=== PATIENT | male | born 1955 | race Caucasian/White ===

== ENCOUNTER → 2018-01-12 13:28 | Outpatient (POV) | payer OTHER, MEDICARE, SELFPAY | DX: Z00.00 Encounter for general adult medical examination without abnormal findings (principal) ==

== ENCOUNTER 2020-08-21 16:37 | Emergency (ER) | payer MEDICARE, SELFPAY ==
[2020-08-21 16:38] VITALS: BP 132/83; PULSE 84; RESP 18; TEMP 36.7; O2SAT 97; BMI 22.5
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
--- NOTE | 2020-08-21 17:07 | ECG_ITS ---
APPROVED REPORT Exam: Resting ECG HR:63 bpm ECG Measurements Heart Rate 63 AXES FL 108 P -12 QRSd 66 QRS 61 QT 392 T 56 QTc 401 Conclusion Sinus rhythm with short FL Septal infarct, age undetermined Abnormal ECG Electronically signed by : Noé Silva, 08/23/2020 09:07:28
--- NOTE | 2020-08-21 17:08 | HMH.EDANX ---
ED Disposition Clinical Impression: Acute anxiety Disposition: Home, Self-Care Condition on Discharge: Good Instructions: DI for Anxiety -- Adult Referrals: José Luis Robertson [Primary Care Provider] - 3 days - Critical Care Critical Care Time: No Attestation: On 08/21/20, the high probability of a clinically significant, sudden or life threatening deterioration of the following system(s) required my full and direct attention, intervention and personal management. The time I documented below is in addition to time spent performing reported procedures but includes the following listed in this critical care notation. Medical Decision Making - Medical Records Medical records reviewed: Yes: I reviewed the patient's medical records. - Pierre Inquiry Pt receiving controlled substance: Yes Pierre was queried for this patient: No Risks and benefits of using a controlled substance: were discussed with pt by me Vital Signs: 08/21/20 16:38 Temperature 98.0 F Temperature Source Oral Pulse Rate [Left Radial] 84 Respiratory Rate 18 Blood Pressure [Left Arm] 132/83 Blood Pressure Mean [Left Arm] 99 Blood Pressure Source [Left Arm] Automatic Cuff Blood Pressure Position [Left Arm] Sitting 02 Sat by Pulse Oximetry 97 Oxygen Delivery Method Room Air - Lab Data Lab results reviewed: Yes: I reviewed the patient's lab results. Lab Results 08/21/20 17:15: WBC 6.8, RBC 5.09, Hgb 15.7, Hct 46.4, MCV 91.1, MCH 30.9, MCHC 33.9, RDW 13.1, Plt Count 171, MPV 7.7, Neut % (Auto) 65.3, Lymph % (Auto) 27.3, [place] % (Auto) 6.0, Eos % (Auto) 0.9, Baso % (Auto) 0.5, Neut # (Auto) 4.4, Lymph # (Auto) 1.8, [place] # (Auto) 0.4, Eos # (Auto) 0.1, Baso # (Auto) 0.0 08/21/20 17:15: Sodium 140, Potassium 3.9, Chloride 102, Carbon Dioxide 30, Anion Gap 11.9, BUN 9, Creatinine 0.60 L, Estimated Creat Clear 71, Estimated GFR 136, Est GFR ( Amer) 164, Glucose 128 H, Calcium 9.2, Troponin I < 0.01 Result diagrams: 08/21/20 17:15 08/21/20 17:15 Orders (Tests/Meds): ED MEDICATIONS Discontinued Medications Generic Name Dose Route Start Last Admin Trade Name Darrick PRN Reason Stop Dose Admin Diazepam 5 mg 08/21/20 17:08 08/21/20 17:29 Diazepam 5mg Tablet PO 08/21/20 17:09 5 mg ONCE ONE Administration ORDERS Category Date Time Status ECG Request by /Mingo Stat Y 08/21/20 17:07 Ordered - Radiology Data #1 Image(s): Chest No acute process, chronic small airway disease present Medical Decision Narrative: Patient with reassuring vital signs, EKG with no signs of acute ischemia and negative troponin. Low suspicion for ACS. Chest x-ray with no signs of florid pulmonary edema, pneumonia, pneumothorax, widened mediastinum. Patient has had anxiety attacks before with similar onset. He is feeling much better with Valium here. Suspect his annexes and recommended following up with PCP for further evaluation, management and discussion of medication control if needed. Discharged home. Anxiety HPI - General Chief Complaint: Anxiety Stated Complaint: possible anxiety Time Seen by Provider: 08/21/20 17:08 Mode of Arrival: Ambulatory Limitations: No Limitations Description of Symptoms (Recalled from ER Triage Doc. by RN): Pt reports he believes he is having an anxiety attack. 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 Pt reports he took 1 tablet of Xanax 0.5 mg. Pt reports symptoms have improved some but not fully. Pt reports hx of anxiety. Pt denies SOA, Chest pain, pain anywhere, or dizziness. - History of Present Illness HPI narrative: This is a 65-year-old male with a past medical history significant for hypertension, hyperlipidemia, COPD, peripheral vascular disease who presents to the emergency department for evaluation of episode of anxiety at home. He previously struggled with significant anxiety attacks that sent him to the emergency ro
[2020-08-21 17:31] VITALS: BP 121/76; PULSE 72; RESP 18; O2SAT 97
[2020-08-21 17:31] LABS: Chloride 102 mmol/L (98-107); Potassium 3.9 mmoL/L (3.5-5.1); Sodium 140 mmol/L (136-145)
[2020-08-21 17:34] LABS: Anion Gap 11.9 mEq/L (5-15); Blood Urea Nitrogen 9 mg/dl (9-20); Calcium 9.2 mg/dl (8.4-10.2); Carbon Dioxide 30 mmol/L (22.0-30.0); Creatinine Clearance Estimated 71 mL/min (50-200); Estimated Glomerular Filt Rate 136 ml/min (>60); GFR (African American) 164 ML/MIN (>60); Glucose 128 mg/dl (74-100)
[2020-08-21 17:36] LABS: Basophils % 0.5 % (0.1-2.0); Eosinophils # 0.1 K/mm3 (0.0-0.4); Eosinophils % 0.9 % (0.1-12.0); Hematocrit 46.4 % (42.0-52.0); Hemoglobin 15.7 g/dL (14.1-18.0); Lymphocytes # 1.8 K/mm3 (0.7-4.5); Lymphocytes % 27.3 % (10-50); Mean Corpuscular HGB Conc 33.9 g/dL (31.8-35.4); Mean Corpuscular Hemoglobin 30.9 pg (27.0-31.2); Mean Corpuscular Volume 91.1 fl (80-94); Mean Platelet Volume 7.7 fl (7.4-10.4); Monocytes # 0.4 K/mm3 (0.1-1.0); Neutrophils # 4.4 K/mm3 (1.8-7.8); Neutrophils % 65.3 % (37.0-80.0); Platelet Count 171 K/mm3 (142-424); Red Blood Count 5.09 M/mm3 (4.60-6.20); Red Cell Distribution Width 13.1 % (11.5-17.5); White Blood Count 6.8 K/mm3 (4.8-10.8)
[2020-08-21 17:52] LABS: Troponin I < 0.01 ng/ml (0.00-0.034)
[2020-08-21 18:00] VITALS: BP 119/75; PULSE 61; PULSE 67; RESP 18; TEMP 36.6; O2SAT 97
== END 2020-08-21 18:09 | disposition home or self-care (01) ==
PROVIDERS: Emergency Provider Emergency Medicine; PCP Family Medicine
DX: F41.9 Anxiety disorder, unspecified (principal); I10 Essential (primary) hypertension; E78.5 Hyperlipidemia, unspecified; J44.9 Chronic obstructive pulmonary disease, unspecified; I73.9 Peripheral vascular disease, unspecified; Z79.899 Other long term (current) drug therapy
CPT/HCPCS: 71045; 80048; 84484; 85025; 93005; 99282

== ENCOUNTER 2020-10-21 17:54 | Emergency (ER) | payer MEDICARE, SELFPAY ==
[2020-10-21 18:17] VITALS: BP 186/103; PULSE 96; RESP 18; TEMP 36.9; O2SAT 97; BMI 22.9
--- NOTE | 2020-10-21 18:45 | XR_ITS ---
PROCEDURE INFORMATION: Exam: XR Lumbosacral Spine Exam date and time: 10/21/2020 6:45 PM Age: 65 years old Clinical indication: Low back pain; Prior surgery; Additional info: Lbp TECHNIQUE: Imaging protocol: XR of the lumbosacral spine. Views: 2 or 3 views. COMPARISON: No relevant prior studies available. FINDINGS: Bones/joints: At L4-L5 there is disc height narrowing, endplate sclerosis and anterior and posterior osteophyte formation. No acute fracture. Normal alignment. Soft tissues: Unremarkable. IMPRESSION: No acute findings.
--- NOTE | 2020-10-21 19:20 | HMH.EDGENADL ---
ED Disposition Clinical Impression: Lumbar back pain Disposition: Home, Self-Care Condition on Discharge: Good Instructions: DI for Low Back Pain, DI for Chronic Pain -- Adult Prescriptions: methylPREDNISolone [Medrol 4mg tab] 4 mg PO DIRECTED #21 tab Prescription Printed Referrals: José Luis Robertson [Primary Care Provider] - - Critical Care Critical Care Time: No Attestation: On 10/21/20, the high probability of a clinically significant, sudden or life threatening deterioration of the following system(s) required my full and direct attention, intervention and personal management. The time I documented below is in addition to time spent performing reported procedures but includes the following listed in this critical care notation. Medical Decision Making - Medical Records Medical records reviewed: Yes: I reviewed the patient's medical records. - Pierre Inquiry Pt receiving controlled substance: No Vital Signs: 10/21/20 18:17 Temperature 98.4 F Temperature Source Oral Pulse Rate [Left Radial] 96 H Respiratory Rate 18 Blood Pressure [Right Arm] 186/103 H Blood Pressure Mean [Right Arm] 130 Blood Pressure Source [Right Arm] Automatic Cuff Blood Pressure Position [Right Arm] Sitting 02 Sat by Pulse Oximetry 97 Oxygen Delivery Method Room Air Orders (Tests/Meds): ED MEDICATIONS Generic Name Dose Route Start Last Admin Trade Name Freq PRN Reason Stop Dose Admin Methocarbamol 500 mg 10/21/20 21:00 10/21/20 18:48 Methocarbamol 500mg Tablet PO 11/20/20 20:59 500 mg BID HANNAH Administration Discontinued Medications Generic Name Dose Route Start Last Admin Trade Name Freq PRN Reason Stop Dose Admin Ketorolac Tromethamine 15 mg 10/21/20 18:38 10/21/20 18:48 Ketorolac 30mg/Ml Vial IM 10/21/20 18:39 15 mg ONCE ONE Administration Methylprednisolone Acetate 40 mg 10/21/20 18:43 10/21/20 18:48 Methylprednisolone Acetate 40mg/Ml Vial IM 10/21/20 18:44 40 mg ONCE ONE Administration ORDERS Category Date Time Status XR lumbar spine 2-3V Stat Exams 10/21/20 18:45 Taken Medical Decision Narrative: To the ED today for further evaluation of low back pain. Differential diagnosis includes cauda equina syndrome, lumbar radiculopathy, sciatica. Patient is well-appearing on examination no acute distress, no SIRS symptoms of infection, back pain is chronic, and acute on chronic today. Patient does not have any evidence of urinary retention, no fecal incontinence, no saddle anesthesia, no numbness or weakness of the lower extremities and no clonus on exam, low concern for acute cause cauda equina spinal cord compression at this time. Patient received 15 mg of IM oral, 40 mg of IM methylprednisolone, 500 mg of oral methocarbamol and is reported a mild symptomatic improvement at this time. I have thoroughly discussed the pros and cons of initiating steroid therapy in this patient who is at risk for GI bleeding, advised him to take [id number] omeprazole, and to stop taking his steroid and report to the ED should he have any symptoms of upper or lower GI bleeding, and I discussed the symptoms of coffee-ground emesis and melena. Patient has moderate cardiac risk as well, and I have not advised NSAID therapy, however states that he does take NSAIDs occasionally. Patient to follow-up with primary care, I have advised him to do this, and he will schedule. Patient given other return precautions to return to the ED with any new or worsening symptoms we discussed symptoms of spinal cord compression as well. Patient well-appearing at the time of discharge. General Adult HPI - General Chief complaint: Back Pain/Injury Stated complaint: back pain Time Seen by Provider: 10/21/20 18:20 Mode of Arrival: Ambulatory Limitations: No Limitations Description of Symptoms (Recalled from ER Triage Doc. by RN): c/o lower back pain. States that he has a hx of back surgeries and pain. -
[2020-10-21 19:26] VITALS: BP 140/75; PULSE 81; RESP 17; TEMP 36.8; O2SAT 98
== END 2020-10-21 19:29 | disposition home or self-care (01) ==
PROVIDERS: Emergency Provider Student in an Organized Health Care Education/Training Program; PCP Family Medicine
DX: M54.5 Low back pain (principal); E78.5 Hyperlipidemia, unspecified; I10 Essential (primary) hypertension; J44.9 Chronic obstructive pulmonary disease, unspecified
CPT/HCPCS: 72100; 96372; 99281; J1030

== ENCOUNTER 2021-03-10 15:52 | Emergency (ER) | payer MEDICARE, SELFPAY ==
[2021-03-10 15:53] VITALS: BP 142/88; PULSE 106; RESP 20; TEMP 36.6; O2SAT 98; BMI 22.5
--- NOTE | 2021-03-10 16:24 | CT_ITS ---
PROCEDURE INFORMATION: Exam: CT Abdomen And Pelvis With Contrast Exam date and time: 03/10/2021 4:24 PM Age: 65 years old Clinical indication: Abdominal pain; Flank; Left; Additional info: Left flank pain TECHNIQUE: Imaging protocol: Computed tomography of the abdomen and pelvis with contrast. Radiation optimization: All CT scans at this facility use at least one of these dose optimization techniques: automated exposure control; mA and/or kV adjustment per patient size (includes targeted exams where dose is matched to clinical indication); or iterative reconstruction. Contrast material: ISOVUE; Contrast volume: 75 ml; Contrast route: IV; COMPARISON: CR XR LUMBAR SPINE 2-3V 10/21/2020 6:48 PM FINDINGS: Lungs: Lungs appear hyperinflated. Calcified right lower lobe pulmonary granuloma. Mild interstitial scarring or subsegmental atelectasis in the left lingula. No focal consolidation, as visualized. Liver: The liver is normal. Gallbladder and bile ducts: Cholecystectomy clips. Slightly prominent common duct up to 1.1 cm, and minimal ectasia of the left hepatic biliary tree, probably benign reservoir effect post cholecystectomy. No calcified stones. Pancreas: Slight fatty atrophic changes of the pancreas. No mass or ductal dilatation. Spleen: The spleen is normal. Adrenal glands: 2.6 cm right adrenal mass, which has slightly heterogeneous internal density with some thin septations suggested, this has indeterminate enhanced HU density measurements ranging from 17-65 HU. Series 3, image 21. Left adrenal is normal. Kidneys and ureters: Mild left hydronephrosis and hydroureter. There is a possible low-density 4 mm stone at the left ureterovesical junction series 3, image 97 and coronal series 1001, image 44, with HU density of approximate 123. This is not clearly visible on the hybrid tester topogram. There is left perinephric and periureteral soft tissue edema, which could be due to obstruction versus superimposed UTI. No hydronephrosis or hydroureter on the right. There are tiny bilateral nonobstructing renal calculi. 11 x 7 mm simple right renal cortical cystic lesion with enhanced HU density of 12 series 3, image 35. Subcentimeter, tiny hypoattenuating lesions in the kidneys are probably tiny cysts, too small to accurately characterize. Stomach and bowel: There is no evidence of intestinal perforation or obstruction. The stomach is normal. Appendix: A normal appendix is identified. Intraperitoneal space: There is no significant free intraperitoneal fluid; trace fluid in the left pericolic gutter appears to be emanating from the edematous left kidney. There is no free intraperitoneal air. Vasculature: Extensive atherosclerotic disease. There is no aortic aneurysm. There is moderate infrarenal abdominal aortic stenosis with soft plaque or intraluminal thrombus, see series 3, images 49-50 and coronal series 1001, images 38-39. There is occlusion of the left common iliac artery coronal series 1001, images 38-39. There is reconstitution of the left internal and external iliac arteries via collaterals. Additional scattered atherosclerotic plaques throughout the abdomen and pelvis. Lymph nodes: No significantly enlarged lymph nodes by short axis criteria. Urinary bladder: The urinary bladder is nearly empty and not well evaluated, which likely accounts for thickened appearance. Tiny left UVJ stone suggested, see the ureteral discussion above. Reproductive: Nonspecific prostate enlargement approximately 5.5 x 4 x 3.5 cm, with heterogeneous prostate enhancement. Seminal vesicles are unremarkable. Bones/joints: Some scattered tiny sclerotic bone lesions
[2021-03-10 16:38] LABS: Microscopic, Urine URINE MICROSCOPIC (MICROSCOPIC)
[2021-03-10 16:46] LABS: Appearance,Urine SL CLOUDY (Clear); Bilirubin,Urine Negative (Negative); Blood, Urine 3+ (Negative); Color,Urine BROWN (Yellow); Glucose,Urine (UA) Negative (Negative); Ketones,Urine Negative (Negative); Leukocyte Esterase,Urine TRACE (Negative); Nitrate,Urine Negative (Negative); Protein,Urine 1+ (Negative); Specific Gravity, Urine 1.015 (1.005-1.030); Urobilinogen,Urine 0.2 EU/dl (0.2)
[2021-03-10 16:50] VITALS: BP 157/72; PULSE 81; RESP 18; O2SAT 97
[2021-03-10 17:00] VITALS: BP 142/66; PULSE 75; RESP 18; O2SAT 97
--- NOTE | 2021-03-10 17:01 | HMH.EDGENADL ---
ED Disposition Clinical Impression: Bilateral nephrolithiasis, Lesion of adrenal gland UTI (urinary tract infection) Qualifiers: Urinary tract infection type: acute cystitis Hematuria presence: with hematuria Qualified Code(s): N30.01 - Acute cystitis with hematuria Disposition: Home, Self-Care Condition on Discharge: Good Additional Instructions: Follow-up with Dr. Escoto this for urology followup. Take antibiotics, pain medication, flomax as directed. Drink plenty of fluids and water. Strain your urine for signs of passing a kidney stone. It is also important follow-up with your primary care physician for outpatient CT scan of your adrenal gland. Return to ED with new, worsening, concerning symptoms. Prescriptions: Tamsulosin HCl [Flomax 0.4mg capsule] 0.4 mg PO HS #30 cap Transmission Status: Received by [facility] Cefdinir [Omnicef 300mg Capsule] 300 mg PO BID #20 cap Transmission Status: Received by [facility] Oxycodone HCl [Oxycodone 5mg tab (IR)] 5 mg PO Q8 PRN 3 Days #8 tab PRN Reason: Severe Pain Prescription Printed Referrals: José Luis Robertson [Primary Care Provider] - Angel Luis Escoto MD [Staff Physician] - - Critical Care Critical Care Time: No Attestation: On 03/10/21, the high probability of a clinically significant, sudden or life threatening deterioration of the following system(s) required my full and direct attention, intervention and personal management. The time I documented below is in addition to time spent performing reported procedures but includes the following listed in this critical care notation. Medical Decision Making - Medical Records Medical records reviewed: Yes: I reviewed the patient's medical records. - Pierre Inquiry Pt receiving controlled substance: No Vital Signs: 03/10/21 15:53 03/10/21 16:50 03/10/21 17:00 Temperature 98 F Temperature Source Oral Pulse Rate 81 75 Pulse Rate [Radial] 106 H Respiratory Rate 20 18 18 Blood Pressure 157/72 H 142/66 H Blood Pressure [Right Arm] 142/88 H Blood Pressure Mean 100 91 Blood Pressure Mean [Right Arm] 106 Blood Pressure Position [Right Arm] Sitting 02 Sat by Pulse Oximetry 98 97 97 Oxygen Delivery Method Room Air 03/10/21 20:04 Temperature 98.2 F Temperature Source Oral Pulse Rate 80 Pulse Rate [Radial] Respiratory Rate 18 Blood Pressure 140/78 Blood Pressure [Right Arm] Blood Pressure Mean Blood Pressure Mean [Right Arm] Blood Pressure Position [Right Arm] 02 Sat by Pulse Oximetry Oxygen Delivery Method Room Air - Lab Data Lab Results 03/10/21 16:00: Urine Color Brown, Urine Appearance Sl cloudy, Urine pH 7.0, Ur Specific [place] 1.015, Urine Protein 1+, Urine Glucose (UA) Negative, Urine Ketones Negative, Urine Blood 3+, Urine Nitrate Negative, Urine Bilirubin Negative, Urine Urobilinogen 0.2, Ur Leukocyte Esterase Trace, Urine RBC Tntc, Urine WBC 3-5, Ur Squamous Epith Cells None, Urine Bacteria 1+ 03/10/21 16:46: WBC 10.1, RBC 4.44 L, Hgb 14.2, Hct 41.0 L, MCV 92.2, MCH 31.9 H, MCHC 34.6, RDW 13.5, Plt Count 201, MPV 7.5, Neut % (Auto) 67.4, Lymph % (Auto) 24.5, [place] % (Auto) 7.2, Eos % (Auto) 0.3, Baso % (Auto) 0.6, Neut # (Auto) 6.8, Lymph # (Auto) 2.5, [place] # (Auto) 0.7, Eos # (Auto) 0.0, Baso # (Auto) 0.1 03/10/21 16:46: Sodium 143, Potassium 3.3 L, Chloride 102, Carbon Dioxide 35 H, Anion Gap 9.3, BUN 11, Creatinine 0.70, Estimated Creat Clear 71, Estimated GFR 114, Est GFR ( Amer) 137, Glucose 102 H, Calcium 9.2, Total Bilirubin 0.3, AST 31, ALT 28, Alkaline Phosphatase 69, Total Protein 6.9, Albumin 4.2, Globulin 2.7, Albumin/Globulin Ratio 1.6 03/10/21 16:46: Lipase 16 L 03/10/21 16:46: Lactate 1.3 Result diagrams: 03/10/21 16:46 03/10/21 16:46 Orders (Tests/Meds): ED MEDICATIONS Discontinued Medications Generic Name Dose Route Start Last Admin Trade Name Freq PRN Reason Stop Dose Admin Cefdinir 300 mg 03/10/21 09
[2021-03-10 17:06] LABS: Bacteria,Urine 1+ /lpf; RBC,Urine TNTC #/hpf (0-3)
[2021-03-10 17:12] LABS: Basophils # 0.1 K/mm3 (0-0.2); Basophils % 0.6 % (0.1-2.0); Chloride 102 mmol/L (98-107); Eosinophils % 0.3 % (0.1-12.0); Hemoglobin 14.2 g/dL (14.1-18.0); Lymphocytes # 2.5 K/mm3 (0.7-4.5); Lymphocytes % 24.5 % (10-50); Mean Corpuscular HGB Conc 34.6 g/dL (31.8-35.4); Mean Corpuscular Hemoglobin 31.9 pg (27.0-31.2); Mean Corpuscular Volume 92.2 fl (80-94); Mean Platelet Volume 7.5 fl (7.4-10.4); Monocytes # 0.7 K/mm3 (0.1-1.0); Monocytes % 7.2 % (1.7-9.3); Neutrophils # 6.8 K/mm3 (1.8-7.8); Neutrophils % 67.4 % (37.0-80.0); Platelet Count 201 K/mm3 (142-424); Potassium 3.3 mmoL/L (3.5-5.1); Red Blood Count 4.44 M/mm3 (4.60-6.20); Red Cell Distribution Width 13.5 % (11.5-17.5); Sodium 143 mmol/L (136-145); White Blood Count 10.1 K/mm3 (4.8-10.8)
[2021-03-10 17:14] LABS: Blood Urea Nitrogen 11 mg/dl (9-20); Creatinine Clearance Estimated 71 mL/min (50-200); Estimated Glomerular Filt Rate 114 ml/min (>60); GFR (African American) 137 ML/MIN (>60)
[2021-03-10 17:15] LABS: Alanine Aminotransferase 28 U/L (12-78); Albumin Level 4.2 g/dl (3.5-5.0); Albumin/Globulin Ratio 1.6 (1.1-1.8); Alkaline Phosphatase 69 U/L (38-126); Anion Gap 9.3 mEq/L (5-15); Aspartate Amino Transferase 31 U/L (17-59); Bilirubin,Total 0.3 mg/dl (0.2-1.3); Calcium 9.2 mg/dl (8.4-10.2); Carbon Dioxide 35 mmol/L (22.0-30.0); Globulin 2.7 g/dL (1.3-3.2); Glucose 102 mg/dl (74-100); Lipase 16 U/L (23-300); Total Protein,Serum 6.9 g/dl (6.3-8.2)
[2021-03-10 17:16] LABS: Lactic Acid 1.3 mmol/L (0.7-2.1)
--- NOTE | 2021-03-10 19:19 | PC.NURSE ---
paged dr key @ this time
[2021-03-10 20:04] VITALS: BP 140/78; PULSE 80; RESP 18; TEMP 36.8; O2SAT 98
== END 2021-03-10 20:07 | disposition home or self-care (01) ==
PROVIDERS: Emergency Provider Emergency Medicine; PCP Family Medicine
DX: N30.01 Acute cystitis with hematuria (principal); N20.0 Calculus of kidney; I10 Essential (primary) hypertension; E78.5 Hyperlipidemia, unspecified; J44.9 Chronic obstructive pulmonary disease, unspecified
CPT/HCPCS: 74177; 80053; 81001; 83605; 83690; 85025; 87086; 96375; 99282; Q9967

== ENCOUNTER 2021-09-20 14:06 | Emergency (ER) | payer MEDICARE, SELFPAY ==
--- NOTE | 2021-09-20 15:24 | PC.NURSE ---
updated pt that no ER beds are available at this time unsure when one will be. PT is stable, standing in ER waiting room. PT states that he is going to go the [facility] at this time to be evaluated.
--- NOTE | 2021-09-20 16:12 | HMH.EDUTC ---
[facility] [place] Disposition Clinical Impression: Anxiety UTI (urinary tract infection) Qualifiers: Urinary tract infection type: site unspecified Hematuria presence: with hematuria Qualified Code(s): N39.0 - Urinary tract infection, site not specified Hematuria Qualifiers: Hematuria type: gross Qualified Code(s): R31.0 - Gross hematuria Disposition: Home, Self-Care Condition on Discharge: Good Instructions: Urinary Tract Infection, DI for Anxiety -- Adult, DI for Hematuria, Hydroxyzine Additional Instructions: Drink plenty of fluids. Take tylenol or ibuprofen for pain or fever. Take the medications as directed. Follow up with your regular doctor. GO TO THE ER FOR ANY WORSENING SYMPTOMS The hydroxyzine (vistaril) will make you drowsy, so don't drive or operate heavy machinery after taking it. We will culture the urine. That will tell what bacteria is causing your infection and which antibiotics will treat it best. Sometimes the first antibiotic we prescribe turns out to not work against different bacteria. So, make sure you follow up within 3 days if you are not getting better. Prescriptions: hydrOXYzine HCL [Hydroxyzine HCl] 25 mg PO Q6HP PRN #30 tab PRN Reason: Anxiety Transmission Status: Received by [id number] Ciprofloxacin HCl [Cipro 500mg Tab] 500 mg PO BID 10 Days #20 tab Transmission Status: Received by [id number] Referrals: Hansa Ochoa [Primary Care Provider] - Time of Disposition: 16:31 Medical Decision Making - Medical Records Medical records reviewed: No: I reviewed the patient's medical records. - Pierre Inquiry Pt receiving controlled substance: No Vital Signs: 09/20/21 16:18 09/20/21 16:36 Temperature 98.1 F 98.1 F Temperature Source Oral Pulse Rate 87 Pulse Rate [Left Radial] 87 Respiratory Rate 17 17 Blood Pressure 131/66 Blood Pressure [Right Arm] 131/66 Blood Pressure Mean [Right Arm] 87 02 Sat by Pulse Oximetry 98 - Lab Data Lab results reviewed: Yes: I reviewed the patient's lab results. Lab Results 09/20/21 16:21: Urine Color Betty, Urine Appearance Turbid, Urine pH 5.5, Ur Specific [place] >= 1.030, Urine Protein 3+, Urine Glucose (UA) 1+, Urine Ketones Trace, Urine Blood 4+, Urine Nitrate Negative, Urine Bilirubin 1+ A, Urine Urobilinogen 0.2, Ur Leukocyte Esterase Negative Orders (Tests/Meds): ORDERS Category Date Time Status Urine Culture Stat Micro 09/20/21 15:38 Results [facility] [place] HPI - General Stated complaint: blood in urine Time Seen by Provider: 09/20/21 16:12 - History of Present Illness Provider Complaint: He states that for the past 1 days he has been having Hematuria and urinary frequency. He denies any back pain or other pain. He has had a UTI that caused him to have this kind of bleeding in the past. He has also had kidney stone that cauesed him to have bleeding like this also, but at that time he had severe back pain. He denies any pain with this episode. He has also been having anxiety. His pcp prescribed him some valium to treat this with about 2 weeks ago, but he is out of that now. He denies any Si or Hi . - Related Data Previous Rx's Medication Instructions Recorded methylPREDNISolone [Medrol 4mg 4 mg PO DIRECTED #21 tab 10/21/20 tab] Cefdinir [Omnicef 300mg Capsule] 300 mg PO BID #20 cap 03/10/21 Oxycodone HCl [Oxycodone 5mg tab 5 mg PO Q8 PRN 3 Days #8 tab 03/10/21 (IR)] Tamsulosin HCl [Flomax 0.4mg 0.4 mg PO HS #30 cap 03/10/21 capsule] Ciprofloxacin HCl [Cipro 500mg 500 mg PO BID 10 Days #20 tab 09/20/21 Tab] hydrOXYzine HCL [Hydroxyzine HCl] 25 mg PO Q6HP PRN #30 tab 09/20/21 Allergies Allergy/AdvReac Type Severity Reaction Status Date / Time No Known Allergies Allergy Verified 09/20/21 16:20 [facility] History - Hepatitis A Screen Attestation statement:: This patient has been screened for Hepatitis A risk factors. I have reviewed th
[2021-09-20 16:18] VITALS: BP 131/66; PULSE 87; RESP 17; TEMP 36.7; O2SAT 98; BMI 22.5
[2021-09-20 16:22] LABS: Apearance,Urine Turbid (Clear); Color,Urine Amber (Yellow); PH,Urine 5.5 (5.0-8.5); Specific Gravity, Urine >= 1.030 (1.005-1.030)
[2021-09-20 16:23] LABS: Bilirubin,Urine 1+ (Negative); Blood, Urine 4+ (Negative); Glucose,Urine (UA) 1+ (Negative); Ketones,Urine TRACE (Negative); Protein,Urine 3+ (Negative); Urobilinogen,Urine 0.2 EU/dl (0.2)
[2021-09-20 16:25] LABS: UTC Leukocyte Esterase,Urine Negative (Negative); UTC Nitrate,Urine Negative (Negative)
[2021-09-20 16:36] VITALS: BP 131/66; PULSE 87; RESP 17; TEMP 36.7
== END 2021-09-20 16:36 | disposition home or self-care (01) ==
PROVIDERS: Emergency Provider Nurse Practitioner Family; PCP Emergency Medicine
DX: N30.01 Acute cystitis with hematuria (principal); I10 Essential (primary) hypertension; I73.9 Peripheral vascular disease, unspecified; E78.5 Hyperlipidemia, unspecified; J44.9 Chronic obstructive pulmonary disease, unspecified; F41.9 Anxiety disorder, unspecified; Z79.52 Long term (current) use of systemic steroids
CPT/HCPCS: 81003; 87086; 99213; G0463

== ENCOUNTER 2022-09-26 12:28 | Emergency (ER) | payer MEDICARE, SELFPAY ==
[2022-09-26 12:29] VITALS: BP 142/87; PULSE 101; RESP 19; TEMP 36.7; O2SAT 97; BMI 22.5
[2022-09-26 12:33] VITALS: BP 142/87; PULSE 95; O2SAT 98
--- NOTE | 2022-09-26 12:50 | HMH.EDGENADL ---
Discharge Plan Disposition Patient Disposition: Home, Self-Care Condition: Good Prescriptions Prescriptions: New fluconazole [Diflucan] 200 mg tablet 200 mg PO DAILY 7 Days Qty: 7 0RF No Action methylprednisolone 4 MG tablet 4 mg PO DIRECTED Qty: 21 0RF Rx Instructions: Take as directed on package instructions cefdinir 300 MG capsule 300 mg PO BID Qty: 20 0RF tamsulosin 0.4 MG capsule 0.4 mg PO HS Qty: 30 0RF oxycodone 5 MG tablet 5 mg PO Q8 PRN (Reason: Severe Pain) 3 Days Qty: 8 0RF ciprofloxacin HCl 500 MG tablet 500 mg PO BID 10 Days Qty: 20 0RF hydroxyzine HCl 25 MG tablet 25 mg PO Q6HP PRN (Reason: Anxiety) Qty: 30 0RF Referrals Follow up/Referrals: Hansa Ochoa [Primary Care Provider] - See instructions Activity Restrictions/Add. Instructions Additional Instructions/Restrictions: Follow-up with your family doctor. Have them schedule CT of your head and neck with IV contrast to further characterize throat pain, possible lymphadenopathy and concern for head neck cancer. Also discussed carotid ultrasounds. If you have any other concerning signs or symptoms, return to the ER or family doctor for further evaluation. Clinical Impressions Clinical Impression: Oral thrush Discharge ED Provider: Andrew Portillo General Adult HPI General Chief complaint: Dental/Oral Stated complaint: Possible thrush in mouth, neck/shoulder pain, itch Time Seen by Provider: 09/26/22 12:32 Mode of Arrival: Ambulatory Source of Information: Patient Limitations: No Limitations Description of Symptoms (Recalled from ER Triage Doc. by RN): 67 yo M presents to ED with c/o possible thrush in mouth. pt does use inhalers for COPD. and pt does have hx of thrush. History of Present Illness HPI narrative: This is a 67-year-old male with history of COPD, hypertension, hyperlipidemia presenting with concern for thrush. History of thrush. Patient has been using his inhalers including steroid inhalers and trying to rinse out with water, but developed a white thick plaque as well as tongue and throat pain 1 day prior to arrival. Has been able to tolerate p.o. intake, but has been painful since that time. No fevers or chills, difficulty breathing, systemic symptoms difficulty or pain with range of motion neck, or any other concerns. Related Data Previous Rx's Medication Instructions Recorded methylprednisolone 4 mg tablet 4 mg PO DIRECTED #21 tabs 10/21/20 cefdinir 300 mg capsule 300 mg PO BID #20 caps 03/10/21 oxycodone 5 mg tablet 5 mg PO Q8 PRN Severe Pain 3 days 03/10/21 #8 tabs tamsulosin 0.4 mg capsule 0.4 mg PO HS #30 caps 03/10/21 ciprofloxacin HCl 500 mg tablet 500 mg PO BID 10 days #20 tabs 09/20/21 hydroxyzine HCl 25 mg tablet 25 mg PO Q6HP PRN Anxiety #30 tabs 09/20/21 fluconazole 200 mg tablet 200 mg PO DAILY 7 days #7 tabs 09/26/22 (Diflucan) Allergies Allergy/AdvReac Type Severity Reaction Status Date / Time No Known Allergies Allergy Verified 09/20/21 16:20 [facility] Disclaimer: The information contained in this section may have been updated after the patient was seen, as this information can be updated by other users. Social History Smoking Status: Current every day smoker alcohol intake: current current occupational status: unemployed Travel in the last 8 weeks: None ROS Obtained: Yes All systems reviewed & no additional complaints except as documented Physical Exam General General appearance: alert and in no apparent distress Head Head exam: atraumatic, normocephalic and normal inspection Eye Eye exam: Present normal appearance, PERRL and EOMI ENT ENT exam: Present mucous membranes dry, TM's normal bilaterally, normal external ear exam and other (Pharyngeal erythema white, removable plaque with) Neck Neck exam: Present normal inspection, full ROM and trachea midline; Absent meningismus or lymphadenopathy Chest Chest inspection: Prese
[2022-09-26 13:01] VITALS: BP 142/87; PULSE 101; RESP 16; TEMP 36.7
== END 2022-09-26 13:02 | disposition home or self-care (01) ==
PROVIDERS: Emergency Provider Emergency Medicine; PCP Emergency Medicine
DX: B37.0 Candidal stomatitis (principal); F17.210 Nicotine dependence, cigarettes, uncomplicated; J44.9 Chronic obstructive pulmonary disease, unspecified; I10 Essential (primary) hypertension; E78.5 Hyperlipidemia, unspecified
CPT/HCPCS: 99282; 99283

== ENCOUNTER → 2023-02-23 11:35 | Outpatient (CLI) | payer MEDICARE, SELFPAY ==
[2023-02-23 12:47] LABS: Blood Urea Nitrogen 11 mg/dl (9-20); Estimated Glomerular Filt Rate 97 ml/min (>60); GFR (African American) 117 ML/MIN (>60)
== END ==
PROVIDERS: Visit Provider Otolaryngology
DX: J02.9 Acute pharyngitis, unspecified (principal); R49.0 Dysphonia; Z72.0 Tobacco use
CPT/HCPCS: 36415; 82565; 84520

== ENCOUNTER → 2023-02-24 12:46 | Outpatient (CLI) | payer MEDICARE, SELFPAY ==
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
== END ==
PROVIDERS: PCP Emergency Medicine; Visit Provider Otolaryngology
DX: J02.9 Acute pharyngitis, unspecified (principal); R49.0 Dysphonia; Z72.0 Tobacco use
CPT/HCPCS: 70491; Q9967

== ENCOUNTER 2024-03-06 10:47 | Outpatient (CLI) | payer MEDICARE, SELFPAY ==
--- NOTE | 2024-03-06 10:48 | US_ITS ---
FINAL REPORT CLINICAL HISTORY: bilateral thyroid nodules COMPARISON: None FINDINGS: Sonographic images of the thyroid gland were obtained. The right thyroid lobe measures 47 mm. in length. The left thyroid lobe measures 43 mm. in length. The thyroid isthmus measures 3 mm. The echogenicity is normal. In the right lobe of the thyroid there is a 7 x 5 x 4 mm mass, spongiform in appearance, a TI-RADS category 1 nodule. No other nodules are noted in the right lobe of the thyroid. In the left lobe of the thyroid there is a 12 x 7 x 10 mm mass, mixed cystic and solid, a TI-RADS category 2 nodule. No other nodules are noted in the left lobe of the thyroid gland. IMPRESSION: 2 nodules are present in the thyroid gland as described above. According to TI-RADS criteria, no follow-up is required at this time. Reviewed, Interpreted and Dictated by Pelon Mendez III, MD Transcribed by Alma De Los Santos Authenticated and [facility]
== END 2024-03-06 23:59 | disposition home or self-care (01) ==
LOC: RAD 10:48
PROVIDERS: PCP Emergency Medicine; Visit Provider Nurse Practitioner
DX: E04.1 Nontoxic single thyroid nodule (principal); R49.0 Dysphonia
CPT/HCPCS: 76536

== ENCOUNTER 2024-08-10 11:48 | Outpatient (CLI) | payer MEDICARE, SELFPAY ==
--- OUTSIDE RECORDS SUMMARY | 2024-08-10 11:51 | XMS_ITS | Continuity of Care Document ---
Author Organization [facility] Phone Care Team Providers Care Program Director Cable Television Name Role Phone DAMIAN MIDDLETON Admitting JOAN CABRERA Primary Care DAMIAN MIDDLETON Primary Attending [phone] DAMIAN MIDDLETON Unavailable ALLERGIES AND ADVERSE REACTIONS FAMILY HISTORY RESULTS MEDICATIONS SOCIAL HISTORY HEALTH CONCERNS ENCOUNTERS CARE TEAM
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
--- NOTE | 2024-08-10 11:52 | CT_ITS ---
APPROVED REPORT Head Greenskeeper: CLINICAL INDICATION Chest Pain TECHNIQUE Image Acquisition: A 128 slice MDCT scanner (Pidefarmaa View) was used for data acquisition. A noncontrast coronary calcium scan was performed. A CT attenuation threshold of 130 Hounsfield units (HU) was used for the detection of calcium in contiguous voxels of 1 sq mm in area to be counted as individual lesions. Bolus tracking in the ascending aorta with a threshold of 180 HU was performed. Immediately afterwards, ECG synchronized cardiac CT was then performed from the cardiac base to apex using retrospective gating with ECG tube current modulation. A total of 85 mL of Isovue 370 mg/mL contrast medium was administered at 5 mL/sec followed by a saline flush using a biphasic injection protocol. A tube voltage of 120 KVp was used. The patient received the following medications prior to the cardiac CT. 75 mg of oral metoprolol 15 mg of oral ivabradine 0.8 mg of sublingual nitroglycerin The average heart rate at the time of acquisition was 56 bpm and regular. Image Reconstruction Transaxial images were reconstructed at 0.67 mm slide thickness. Data was reviewed interactively on an advanced workstation capable of 2 and 3-dimensional displays in all conventional reconstruction formats, including multiplanar reformations, maximum intensity projections, curved multiplanar reformations, and volume rendered reconstructions. When applicable, selected routine images describing the relevant coronary anatomy and pathology were saved and sent to PACS. Complications None Technical Quality Overall image quality was good. Coronary artery opacification was adequate. Total DLP (Dose-Length Product) is 1616.2 mGy-cm. The reported value represents the total of one or more individual components during the CT acquisition of this date and at this time, and as such, the same value may appear in more than one CT report depending on the interpreting/reporting physicians. COMPARISON None FINDINGS CT Coronary Calcium Scoring LMA (Left Main Artery) = 0 LAD (Left Anterior Descending) = 5 LCX (Left Coronary Circumflex) = 31 RCA (Right Coronary Artery) = 103 Total Calcium Score = 139 using the AJ-130 method. The observed calcium score of 139 is at 53rd percentile for subjects of the same age, sex, and race/ethnicity. The interpretation of the calcium heart score is based on the following continuum*: 0 = no calcified plaque detected (risk of coronary artery disease is very low ??? less than 5%) 1-10 = calcium detected in extremely minimal levels (risk of coronary diseases is still low ??? less than 10%) 11-100 = mild levels of plaque detected with certainty (mild or minimal narrowing of heart arteries is likely) 101-400 = definite,at least moderate levels of plaque detected (relatively high risk of a heart attack within 3-5 years) >401-999 = extensive levels of plaque detected (high risk of heart attack, high levels of vascular disease are present, high likelihood of at least one significant coronary narrowing) *The calcium heart score quantifies the burden of coronary calcification/plaque in the coronary arteries. The calcium heart score is not able to evaluate the presence or burden of non-calcified (i.e. soft) plaque. There is no identifiable calcification in the aortic valve, mitral annulus or mitral valve, pericardium, or myocardium. Coronary CT Angiography The coronary arterial system is right dominant. Quantitative Stenosis Grading: Left Main (LM): The left main originates normally from the left sinus of Valsalva. The LM bifurcates into the left anterior descending artery and left circumflex artery. The LM is patent with no evidence of atherosclerosis. Left Anterior Descending (LAD) and Diagonal Branches: The LAD gives off 3 diagonal branch(es). There is mixed calcified/noncalcified plaque in the proximal LAD, with < 25% luminal stenosis. There is no evidence of LAD-myocardial bridge. Left Circumflex (LCX) and Obtuse Marginals (OM): The LCX gives off 1 Obtuse Marginal (OM) branch(es). There is mixed calcified/noncalcified plaque in the proximal and mid LCx, with < 25% luminal stenosis. Right Coronary Artery (RCA): The RCA originates normally from the right sinus of Valsalva. The RCA gives off a posterior descending artery (PDA) and posterolateral (PL) branches. There is mixed calcified/noncalcified plaque in the proximal RCA, with < 25% luminal stenosis. Non-Coronary Cardiac Findings: Analysis of the left ventricular (LV) structure and function was performed after 3-D reconstruction of the LV from axial images, with user-corrected automatic contouring for assessment of LV volumes and user-defined reconstruction from oblique planes for measurement of 3-D cardiac structure and function. -The left ventricle systolic function is reduced. -There is no left atrial appendage filling defect. Two right pulmonary veins and two left pulmonary veins drain normally into the left atrium. -No pericardial thickening or calcification. -Central and branch pulmonary arteries in the [id number] are unremarkable. -Thoracic aorta within the visualized thoracic aortic-branches in the [id number] is unremarkable. Extracardiac Structures No significant extra-cardiac findings. Note, however, that this study is focused on the cardiac findings. IMPRESSION - Presence of coronary calcification with an Agatston score = 139 using the AJ-130 method. -The observed calcium score of 139 is at 53rd percentile for subjects of the same age, sex, and race/ethnicity. - Minimal, nonobstructive atherosclerotic coronary disease, with no evidence of significant flow-limiting atherosclerosis of the coronary arteries. -CAD-RADS 1. Management recommendations per ACC/AHA guidelines*, as clinically appropriate. -There is reduction in LV systolic function on CCTA. Correlation of LV systolic function with new or recent TTE is suggested. *Recommendations: CAD RADS 0: Reassurance. Consider non-atherosclerotic causes of chest pain. CAD RADS 1: Consider non-atherosclerotic causes of chest pain. Consider preventive therapy and risk factor modification. CAD RADS 2: Consider non-atherosclerotic causes of chest pain. Consider preventive therapy and risk factor modification, particularly for patients with nonobstructive plaque in multiple segments. CAD RADS 3: Consider further functional testing. Consider symptom-guided anti-ischemic and preventive pharmacotherapy as well as risk factor modification per published guideline statements. CAD RADS 4A: Consider further functional testing or invasive coronary angiography with revascularization per published guideline statements. Consider symptom-guided anti-ischemic and preventive pharmacotherapy as well as risk factor modification per published guideline statements. CAD RADS 4B: Invasive coronary angiography recommended with revascularization per published guideline statements. Consider symptom-guided anti-ischemic and preventive pharmacotherapy as well as risk factor modification per published guideline statements. CAD RADS 5: Consider invasive angiography and/or viability assessment with revascularization per published guideline statements. Consider symptom-guided anti-ischemic and preventive pharmacotherapy as well as risk factor modification per published guideline statements. CRITICAL RESULT None COMMUNICATION Per this written report The coronary and cardiac findings of this CCTA were reviewed, reported, and signed by Jesus Power MD (Paint Tester) Conclusion Electronically signed by : Renetta Power MD 08/14/2024 12:35:00
[2024-08-10 12:18] VITALS: BP 145/75; PULSE 96; RESP 18; O2SAT 97
[2024-08-10 12:23] VITALS: BMI 21.9
[2024-08-10] MEDS: METOPROLOL TARTRATE 50MG TABLET PO (12:34)
[2024-08-10] MEDS: IVABRADINE HCL 7.5MG TABLET PO (12:35)
[2024-08-10 13:21] VITALS: BP 156/78; PULSE 59; RESP 18; O2SAT 95
[2024-08-10 13:27] LABS: Anion Gap 5.6 mEq/L (5-15); Blood Urea Nitrogen 14 mg/dl (9-20); Calcium 9.1 mg/dl (8.4-10.2); Carbon Dioxide 31 mmol/L (22.0-30.0); Chloride 105 mmol/L (98-107); Creatinine Clearance Estimated 65 mL/min (50-200); Estimated Glomerular Filt Rate 96 ml/min (>60); GFR (African American) 116 ML/MIN (>60); Glucose 149 mg/dl (74-100); Potassium 4.6 mmoL/L (3.5-5.1); Sodium 137 mmol/L (136-145)
[2024-08-10 13:35] VITALS: BP 146/92; PULSE 64; RESP 17; O2SAT 95
[2024-08-10] MEDS: NITROGLYCERIN 0.4MG SL TABLET SL (13:35)
[2024-08-10 13:45] VITALS: BP 128/78; PULSE 61; RESP 18; O2SAT 95
[2024-08-10] MEDS: 0.9 % SODIUM CHLORIDE 50 ML VIAL IV (13:50)
[2024-08-10] MEDS: SODIUM CHLORIDE 0.9% 10ML SYR (RAD ONLY) 10 ML IV (13:50)
[2024-08-10] MEDS: IOPAMIDOL-370 (76%);100ML BOTTLE 85 ML IV (13:50)
== END 2024-08-10 13:50 | disposition home or self-care (01) ==
PROVIDERS: Internal Medicine; PCP Emergency Medicine; Visit Provider Internal Medicine
DX: R07.9 Chest pain, unspecified (principal)
CPT/HCPCS: 36415; 75574; 80048; Q9967